=== PATIENT | male | born 1985 | race Two or more races ===

== ENCOUNTER 2025-01-09 16:25 | Emergency (ER) | payer MEDICAID ==
[~2025-01-09] VITALS: Ht 174 cm; Wt 131.8 kg
[2025-01-09 16:36] VITALS: BP 158/97; PULSE 91; RESP 18; TEMP 97.9; O2SAT 95
== END 2025-01-09 16:56 | disposition left against medical advice (07) ==
LOC: EMS 16:25
DX: M79.602 Pain in left arm (principal); Z53.21 Procedure and treatment not carried out due to patient leaving prior to being seen by health care provider